=== PATIENT | male | born 1990 | race Caucasian/White ===

== ENCOUNTER → 2021-03-23 14:05 | Outpatient (CLI) | payer OTHER, SELFPAY ==
[2021-03-23 14:47] LABS: COVID19 -Nasal RAPID POSITIVE (Negative)
== END ==
PROVIDERS: PCP Family Medicine; Visit Provider Nurse Practitioner Family
DX: Z20.822 Contact with and (suspected) exposure to COVID-19 (principal)
CPT/HCPCS: 87635